=== PATIENT | female | born 1990 | race Caucasian/White ===

== ENCOUNTER 2018-03-08 21:46 | Emergency (ER) | payer OTHER ==
[2018-03-08] MEDS ORDERED: KETOROLAC 30 MG/ML 1 ML VIAL IVP STA (22:23)
[2018-03-08] MEDS ORDERED: SODIUM CHLORIDE 0.9% 500 ML IV STA (22:23)
[2018-03-08] MEDS ORDERED: ONDANSETRON 4 MG/2 ML VIAL IVP STA (22:24)
[2018-03-08 22:32] LABS: Basophils % (A) 0 %; Eosinophils % (A) 0 %; HCT 41.8 % (34.0-46.0); HGB 13.5 gm/dL (11.4-16.0); Lymphocytes # (A) 1.6 k/uL (1.0-4.8); Lymphocytes % (A) 12 %; MCH 29.5 pg (25.0-35.0); MCHC 32.2 g/dL (31.0-37.0); MCV 91.6 fL (80.0-100.0); Mean Platelet Volume 7.3; Monocytes # (A) 0.2 k/uL (0-1.0); Monocytes % (A) 2 %; Neutrophils # (A) 11.1 k/uL (1.3-7.7); Neutrophils % (A) 84 %; Platelet Count 309 k/uL (150-450); RBC 4.57 m/uL (3.80-5.40); RDW 14.7 % (11.5-15.5); WBC 13.1 k/uL (3.8-10.6)
[2018-03-08 22:48] LABS: ALT 28 U/L (9-52); AST 34 U/L (14-36); Albumin 4.7 g/dL (3.5-5.0); Alkaline Phosphatase 72 U/L (38-126); Amylase 62 U/L (30-110); Anion Gap 11 mmol/L; Blood Urea Nitrogen 19 mg/dL (7-17); Calcium 9.8 mg/dL (8.4-10.2); Carbon Dioxide 26 mmol/L (22-30); Chloride 101 mmol/L (98-107); Glucose 122 mg/dL (74-99); Lipase 32 U/L (23-300); Magnesium 1.9 mg/dL (1.6-2.3); Potassium 4.8 mmol/L (3.5-5.1); Sodium 138 mmol/L (137-145); Total Bilirubin 1.7 mg/dL (0.2-1.3); Total Protein 7.9 g/dL (6.3-8.2)
[2018-03-08 22:50] LABS: Creatine Kinase 319 U/L (30-135)
[2018-03-08 22:54] LABS: INR 1.1 (<1.2); Prothrombin Time 10.4 sec (9.0-12.0)
[2018-03-08 22:59] LABS: Partial Thromboplastin Time 20.9 sec (22.0-30.0)
[2018-03-08 23:03] LABS: Troponin I <0.012 ng/mL (0.000-0.034)
[2018-03-08 23:25] LABS: Appearance,Urine Clear (Clear); Bilirubin,Urine Negative (Negative); Blood,Urine Negative (Negative); Color,Urine Yellow; Glucose,Urine (UA) Negative (Negative); Ketones,Urine 1+ (Negative); Leukocyte Esterase,Urine Negative (Negative); Mucus,Urine Few /hpf; Nitrite,Urine Negative (Negative); PH, Urine 6.5 (5.0-8.0); Protein,Urine 1+ (Negative); RBC,Urine <1 /hpf (0-5); Squamous Epithelial Cell,Urine 5 /hpf (0-4); Urobilinogen,Urine <2.0 mg/dL (<2.0); WBC,Urine 2 /hpf (0-5)
--- NOTE | 2018-03-08 23:43 | XR ---
EXAMINATION TYPE: XR chest 2V DATE OF EXAM: 03/08/2018 COMPARISON: NONE HISTORY: Chest pain TECHNIQUE: Frontal and lateral views of the chest are obtained. FINDINGS: Heart and mediastinum are normal. Lungs are clear. Diaphragm is normal. Bony thorax appear s normal. There are chest leads. IMPRESSION: Normal chest
[2018-03-08 23:51] LABS: Amphetamine Screen,Urine Not Detected (NotDetected); Barbiturate Screen,Urine Not Detected (NotDetected); Benzodiazepines Screen,Urine Not Detected (NotDetected); Cocaine Screen,Urine Not Detected (NotDetected); Methadone Screen, Urine Not Detected (NotDetected); Opiate Screen,Urine Not Detected (NotDetected); Oxycodone Screen, Urine Not Detected (NotDetected); Phencyclidine Screen,Urine Not Detected (NotDetected); Tricyclic Antidepressant,Urine Not Detected (NotDetected); Urn Cannabinoid Scrn Not Detected (NotDetected)
[2018-03-09] MEDS ORDERED: ACETAMINOPHEN TAB 500 MG TAB PO STA (00:11)
--- NOTE | 2018-03-09 00:17 | ED ---
Chest Pain HPI - General Chief Complaint: Chest Pain Stated Complaint: abd pain Time Seen by Provider: 03/08/18 21:50 Source: patient, EMS Mode of arrival: EMS Limitations: no limitations - History of Present Illness Initial Comments: 28-year-old female patient currently at [place] for rehabilitation for methamphetamines presents to the emergency department today for complaints of chest pain, vomiting, and severe lower back pain. Patient states that she is being treated for methamphetamine abuse. Patient states that her symptoms started at 4:00 this morning. States that she has been vomiting all day. She denies any hematemesis. Denies any abdominal pain, constipation, or diarrhea. Denies any fevers or chills. Denies any hematuria, dysuria, urinary frequency, urinary urgency. Sates that she has felt feverish and chilled throughout the day. Patient denies any recent rash, shortness breath, back pain, numbness, tingling, dizziness, weakness, headache, visual changes, or any other complaints. - Related Data Home Medications Medication Instructions Recorded Confirmed Calcium/Magnesium 1000mg/500mg 1 tab PO TID PRN 03/08/18 03/08/18 Multivitamins, Thera [Multivitamin 1 tab PO DAILY 03/08/18 03/08/18 (formulary)] Ondansetron HCl [Zofran] 8 mg PO Q6H PRN 03/08/18 03/08/18 Ondansetron [Zofran] 4 mg IM Q6H PRN 03/08/18 03/08/18 Thiamine [Vitamin B-1] 100 mg PO DAILY 03/08/18 03/08/18 busPIRone HCl [Buspar] 10 mg PO TID PRN 03/08/18 03/08/18 cloNIDine HCL [Catapres] 0.1 mg PO Q4H PRN 03/08/18 03/08/18 Previous Rx's Medication Instructions Recorded Ibuprofen [Motrin] 600 mg PO Q8HR PRN #30 tab 03/09/18 Allergies Allergy/AdvReac Type Severity Reaction Status Date / Time amoxicillin Allergy Anaphylaxis Verified 03/08/18 22:01 Review of Systems ROS Statement: Those systems with pertinent positive or pertinent negative responses have been documented in the HPI. ROS Other: All systems not noted in ROS Statement are negative. EKG Findings - EKG Comments: EKG Findings:: EKG obtained at 2232 shows marked sinus bradycardia with fusion complexes. Ventricular rate is 48, [place] interval 112, QR quaker 86, QT 448, QTC 400. No evidence of ST elevation or depression. Past Medical History Past Medical History: Hypertension Additional Past Medical History / Comment(s): Drug abuse, liver diasease History of Any Multi-Drug Resistant Organisms: None Reported Past Surgical History: No Surgical Hx Reported Past Psychological History: No Psychological Hx Reported, Depression Smoking Status: Current every day smoker Past Alcohol Use History: None Reported Past Drug Use History: Cocaine, Heroin, Marijuana, Methamphetamine General Exam Limitations: no limitations Course Vital Signs 03/08/18 03/08/18 03/09/18 21:47 22:58 00:57 Temperature 99.5 F 98.2 F Pulse Rate 52 L 79 80 Respiratory 20 20 16 Rate Blood Pressure 164/86 164/78 150/94 O2 Sat by Pulse 99 97 100 Oximetry Chest Pain MDM - MDM 28-year-old female patient presented to the emergency department today for evaluation of chest pain, vomiting, and acute low back pain. Physical examination was relatively unremarkable. Abdomen soft and nontender. She did have tenderness over the lumbar spine and the paraspinal thoracic region. Labs reviewed and are relatively unremarkable. There were some EKG changes noted. A chest x-ray showed no acute cardiopulmonary process. CT of the thoracic and lumbar spine was obtained without contrast and showed no acute abnormalities. I did discuss findings and results with the patient. She is instructed to follow-up with cardiology for further evaluation of her abnormal EKG. Return parameters were discussed in detail patient verbalizes understanding and agreed with this plan. She'll be discharged back to [facility]. Disposition Clinical Impression: Chest pain, Acute low back pain Disposition: HOME SELF-CARE Condition: Good Instructions: Chest Pain (ED), Acute Low Back Pain (ED) Additional Instructions: Follow-up with your primary care physician for recheck in 1-2 days. Follow-up with cardiology for reevaluation and possible echo due to EKG changes. Return here immediately for any new, worsening, or concerning symptoms. Prescriptions: Ibuprofen [Motrin] 600 mg PO Q8HR PRN #30 tab PRN Reason: Pain Is patient prescribed a controlled substance at d/c from ED?: No Referrals: None,Stated [Primary Care Provider] - 1-2 days Omid Bran MD [STAFF PHYSICIAN] - 1-2 days Time of Disposition: 00:41
--- NOTE | 2018-03-09 00:19 | CT ---
EXAMINATION TYPE: CT thor lumbar spine wo con DATE OF EXAM: 03/08/2018 COMPARISON: None HISTORY: Back and chest pain, no injury CT DLP: 645.70 mGycm Automated exposure control for dose reduction was used. FINDINGS: The thoracic and lumbar vertebra have normal spacing and alignment. Posterior elements are intact. Th ere is no thoracic paraspinal mass. There is no evidence of compression fracture. Disc spaces are wel l-maintained. I see no focal bone destruction. Sacroiliac joints appear normal. There is no evidence of thoracic or lumbar spinal stenosis. IMPRESSION: NORMAL CT SCAN OF THE THORACIC SPINE. NORMAL CT SCAN OF THE LUMBAR SPINE.
[2018-03-09 00:58] VITALS: RESP 16
[2018-03-09 04:18] VITALS: BP 136/84; PULSE 52; TEMP 97.8
== END 2018-03-09 04:19 | disposition home or self-care (01) ==
LOC: EC 21:46
DX: R07.9 Chest pain, unspecified (principal); M54.5 Low back pain; R10.9 Unspecified abdominal pain; R11.10 Vomiting, unspecified; I10 Essential (primary) hypertension; F17.200 Nicotine dependence, unspecified, uncomplicated; Z79.899 Other long term (current) drug therapy; Z88.0 Allergy status to penicillin
CPT/HCPCS: 99285; 96374; 96375; 36415; 93005; 80053; 82150; 82550; 82553; 83690; 83735; 84484; 85025; 85610; 85730; 81001; 81025; 80306; 71046; 72128; 72131; J2405; J1885

== ENCOUNTER 2018-06-30 20:17 | Emergency (ER) | payer OTHER ==
[2018-06-30 20:29] VITALS: TEMP 97.9
[2018-06-30] MEDS ORDERED: IBUPROFEN 600 MG STARTER PACK 4 TAB BTL PO STA (22:05)
[2018-06-30] MEDS ORDERED: ACETAMINOPHEN TAB 500 MG TAB PO STA (22:05)
[2018-06-30] MEDS ORDERED: SULFAMETH-TMP DS STARTER PACK 2 TAB BTL PO STA (22:05)
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
[2018-06-30 23:12] VITALS: BP 108/77; PULSE 98; RESP 14
== END 2018-06-30 22:47 | disposition home or self-care (01) ==
LOC: EC 20:17
DX: L02.811 Cutaneous abscess of head [any part, except face] (principal); F17.200 Nicotine dependence, unspecified, uncomplicated; Z88.0 Allergy status to penicillin
CPT/HCPCS: 87070; 87077; 87186; 87205; 99284

== ENCOUNTER 2018-10-10 13:46 | Emergency (ER) | payer OTHER ==
[2018-10-10] MEDS ORDERED: SODIUM CHLORIDE 0.9% 1,000 ML IV STA (15:15)
[2018-10-10] MEDS ORDERED: ONDANSETRON 4 MG/2 ML VIAL IVP STA (15:15)
[2018-10-10] MEDS ORDERED: KETOROLAC 30 MG/ML 1 ML VIAL IVP STA (15:15)
--- NOTE | 2018-10-10 15:26 | ED ---
Abdominal Pain HPI - General Chief Complaint: Abdominal Pain Stated Complaint: Flank and back pain, vomiting Time Seen by Provider: 10/10/18 15:01 Source: patient, RN notes reviewed, old records reviewed Mode of arrival: ambulatory Limitations: no limitations - History of Present Illness Initial Comments: This Patient is a 20-year-old female who presents return today with onset of vomiting and left upper quadrant and right upper quadrant abdominal pain radiating towards her back. Patient reports symptoms started this morning. Patient reports that her urine is also had a foul odor. She denies any shortness of breath. Patient denies any recent fever, chills, shortness of breath, chest pain, back pain, , numbness or tingling, constipation or diarrhea, headaches or visual changes, or any other current symptoms - Related Data Home Medications Medication Instructions Recorded Confirmed Clindamycin [Cleocin] 150 mg PO QID 10/10/18 10/10/18 Previous Rx's Medication Instructions Recorded Nitrofurantoin Monohyd/M-Cryst 100 mg PO Q12HR #14 cap 10/10/18 [Macrobid] Allergies Allergy/AdvReac Type Severity Reaction Status Date / Time amoxicillin Allergy Anaphylaxis Verified 10/10/18 15:51 Penicillins Allergy Rash/Hives Verified 10/10/18 15:51 Review of Systems ROS Statement: Those systems with pertinent positive or pertinent negative responses have been documented in the HPI. ROS Other: All systems not noted in ROS Statement are negative. Past Medical History Past Medical History: Hypertension Additional Past Medical History / Comment(s): Drug abuse, liver disease History of Any Multi-Drug Resistant Organisms: None Reported Date of last positivie culture/infection: 06/30/18 MDRO Source:: HEAD Past Surgical History: No Surgical Hx Reported Past Psychological History: Anxiety, Depression Smoking Status: Current every day smoker Past Alcohol Use History: None Reported Past Drug Use History: Cocaine, Heroin, Marijuana, Methamphetamine General Exam - General Exam Comments Initial Comments: 28-year-old female. Alert and oriented 3. Patient appears in no acute distress. General: Well appearing, well nourished, in no distress. Oriented x 3, normal mood and affect . Ambulating without difficulty. Skin: Good turgor, no rash, unusual bruising or prominent lesions Hair: Normal texture and distribution. HEENT: Head: Normocephalic, atraumatic, no visible or palpable masses, depressions, or scaring. Eyes: Visual acuity intact, conjunctiva clear, sclera non-icteric, EOM intact, PERRL. Ears: EACs clear, TMs translucent & cone of light visualized. hearing intact. Nose: No external lesions, mucosa non-inflamed, septum and turbinates normal Mouth: Mucous membranes moist, no mucosal lesions. Teeth/Gums: No obvious caries or periodontal disease. No gingival inflammation or significant resorption. Pharynx: Mucosa non-inflamed, no tonsillar hypertrophy or exudate Neck: Supple, without lesions, bruits, or adenopathy, thyroid non-enlarged and non-tender Heart: No cardiomegaly or thrills; regular rate and rhythm, no murmur or gallop Lungs: Clear to auscultation and percussion Abdomen: Some right CVA tenderness. Right upper quadrant tenderness on abdominal exam. Bowel sounds normal. Extremities: No amputations or deformities, cyanosis, edema or varicosities, peripheral pulses intact Musculoskeletal: Normal gait and station. No misalignment, asymmetry, crepitation, defects, tenderness, masses, effusions, decreased range of motion, instability, atrophy or abnormal strength or tone in the head, neck, spine, ribs, pelvis or extremities. Neurologic: CN 2-12 normal. Sensation to pain, touch, and proprioception normal. DTRs normal in upper and lower extremities. No pathologic reflexes. Psychiatric: Oriented X3, intact recent and remote memory, judgment and insight, normal mood and affect. Limitations: no limitations Course Vital Signs 10/10/18 10/10/18 14:14 16:06 Temperature 97.7 F 97.6 F Pulse Rate 105 H 83 Respiratory 18 16 Rate Blood Pressure 108/71 107/75 O2 Sat by Pulse 99 98 Oximetry - Reevaluation(s) Reevaluation #1: 10/10/18 17:42 Patient was reevaluated and sleeping comfortably in bed. Medical Decision Making - Medical Decision Making Patient's 20-year-old female presents for shortness of 1 day of nausea and vomiting. Negative right side abdominal pain radiates towards her back. Ur inalysis does show I amount of bacteria. She does complain of dysuria and foul urine. Lab work was otherwise unremarkable. Vital signs are stable. No fever. White blood cell count was within normal limits. Liver enzymes are normal. At this time Patient was reevaluated multiple times and resting comfortably bed. Each time I evaluate the Patient she continues to complain of pain. Patient will be given a dose of IV Toradol and 1 dose of muscle rocks of Flexeril. Ultrasound of the gallbladder and kidney was completed. She developed positive sign F Ding sign but no leukocytosis no fever. Discussed possibility biliary colic. Discussed following up with surgeon and monitoring for fevers. We'll discharge the Patient this time with antibiotics for urinary tract infection and close follow-up with PCP. [facility] - Lab Data Result diagrams: 10/10/18 15:20 10/10/18 15:20 Lab Results 10/10/18 10/10/18 10/10/18 Range/Units 15:20 15:20 16:00 WBC 9.1 (3.8-10.6) k/uL RBC 4.60 (3.80-5.40) m/uL Hgb 13.6 (11.4-16.0) gm/dL Hct 42.6 (34.0-46.0) % MCV 92.6 (80.0-100.0) fL MCH 29.5 (25.0-35.0) pg MCHC 31.9 (31.0-37.0) g/dL RDW 14.2 (11.5-15.5) % Plt Count 336 (150-450) k/uL Neutrophils % 67 % Lymphocytes % 25 % Monocytes % 4 % Eosinophils % 1 % Basophils % 1 % Neutrophils # 6.1 (1.3-7.7) k/uL Lymphocytes # 2.2 (1.0-4.8) k/uL Monocytes # 0.4 (0-1.0) k/uL Eosinophils # 0.1 (0-0.7) k/uL Basophils # 0.1 (0-0.2) k/uL Sodium 143 (137-145) mmol/L Potassium 4.5 (3.5-5.1) mmol/L Chloride 105 (98-107) mmol/L Carbon Dioxide 29 (22-30) mmol/L Anion Gap 9 mmol/L BUN 22 H (7-17) mg/dL Creatinine 0.77 (0.52-1.04) mg/dL Est GFR (CKD-EPI)AfAm >90 (>60 ml/min/1.73 sqM) Est GFR (CKD-EPI)NonAf >90 (>60 ml/min/1.73 sqM) Glucose 90 (74-99) mg/dL Calcium 9.5 (8.4-10.2) mg/dL Total Bilirubin 0.6 (0.2-1.3) mg/dL AST 24 (14-36) U/L ALT 35 (9-52) U/L Alkaline Phosphatase 86 (38-126) U/L Total Protein 7.6 (6.3-8.2) g/dL Albumin 4.3 (3.5-5.0) g/dL Amylase 93 (30-110) U/L Lipase 64 (23-300) U/L Urine Color Urine Appearance (Clear) Urine pH (5.0-8.0) Ur Specific Diamond (1.001-1.035) Urine Protein (Negative) Urine Glucose (UA) (Negative) Urine Ketones (Negative) Urine Blood (Negative) Urine Nitrite (Negative) Urine Bilirubin (Negative) Urine Urobilinogen (<2.0) mg/dL Ur Leukocyte Esterase (Negative) Urine RBC (0-5) /hpf Urine Bacteria (None) /hpf Urine Mucus (None) /hpf Urine Yeast (Budding) (None) /hpf Urine HCG, Qual Not Detected (Not Detectd) 10/10/18 Range/Units 16:00 WBC (3.8-10.6) k/uL RBC (3.80-5.40) m/uL Hgb (11.4-16.0) gm/dL Hct (34.0-46.0) % MCV (80.0-100.0) fL MCH (25.0-35.0) pg MCHC (31.0-37.0) g/dL RDW (11.5-15.5) % Plt Count (150-450) k/uL Neutrophils % % Lymphocytes % % Monocytes % % Eosinophils % % Basophils % % Neutrophils # (1.3-7.7) k/uL Lymphocytes # (1.0-4.8) k/uL Monocytes # (0-1.0) k/uL Eosinophils # (0-0.7) k/uL Basophils # (0-0.2) k/uL Sodium (137-145) mmol/L Potassium (3.5-5.1) mmol/L Chloride (98-107) mmol/L Carbon Dioxide (22-30) mmol/L Anion Gap mmol/L BUN (7-17) mg/dL Creatinine (0.52-1.04) mg/dL Est GFR (CKD-EPI)AfAm (>60 ml/min/1.73 sqM) Est GFR (CKD-EPI)NonAf (>60 ml/min/1.73 sqM) Glucose (74-99) mg/dL Calcium (8.4-10.2) mg/dL Total Bilirubin (0.2-1.3) mg/dL AST (14-36) U/L ALT (9-52) U/L Alkaline Phosphatase (38-126) U/L Total Protein (6.3-8.2) g/dL Albumin (3.5-5.0) g/dL Amylase (30-110) U/L Lipase (23-300) U/L Urine Color Yellow Urine Appearance Cloudy H (Clear) Urine pH 8.0 (5.0-8.0) Ur Specific Diamond 1.015 (1.001-1.035) Urine Protein Negative (Negative) Urine Glucose (UA) Negative (Negative) Urine Ketones Negative (Negative) Urine Blood Negative (Negative) Urine Nitrite Negative (Negative) Urine Bilirubin Negative (Negative) Urine Urobilinogen <2.0 (<2.0) mg/dL Ur Leukocyte Esterase Negative (Negative) Urine RBC 2 (0-5) /hpf Urine Bacteria Rare H (None) /hpf Urine Mucus Rare H (None) /hpf Urine Yeast (Budding) Many H (None) /hpf Urine HCG, Qual (Not Detectd) - Radiology Data Radiology results: report reviewed Positive Ding sign and no other sonographic findings to diagnose cholecystitis. Doubt cholecystitis at that time less high clinical suspicion with leukocytosis and neutrophilia. If indicated further characterization to be right with abdominal MRI or CT. Disposition Clinical Impression: UTI (urinary tract infection), Muscle strain of upper back, Vomiting, Biliary colic Disposition: HOME SELF-CARE Condition: Good Instructions (If sedation given, give patient instructions): Urinary Tract Infection in Women (DC) Additional Instructions: Follow-up with primary care physician. Patient should return to the emergency department if any alarming signs or symptoms occur. Prescriptions: Nitrofurantoin Monohyd/M-Cryst [Macrobid] 100 mg PO Q12HR #14 cap Is patient prescribed a controlled substance at d/c from ED?: No Referrals: None,Stated [Primary Care Provider] - 1-2 days Alma Delia Harmon MD [STAFF PHYSICIAN] - 1-2 days Time of Disposition: 18:38
[2018-10-10 15:51] LABS: Basophils # (A) 0.1 k/uL (0-0.2); Basophils % (A) 1 %; Eosinophils # (A) 0.1 k/uL (0-0.7); Eosinophils % (A) 1 %; HCT 42.6 % (34.0-46.0); HGB 13.6 gm/dL (11.4-16.0); Lymphocytes # (A) 2.2 k/uL (1.0-4.8); Lymphocytes % (A) 25 %; MCH 29.5 pg (25.0-35.0); MCHC 31.9 g/dL (31.0-37.0); MCV 92.6 fL (80.0-100.0); Mean Platelet Volume 6.8; Monocytes # (A) 0.4 k/uL (0-1.0); Monocytes % (A) 4 %; Neutrophils # (A) 6.1 k/uL (1.3-7.7); Neutrophils % (A) 67 %; Platelet Count 336 k/uL (150-450); RDW 14.2 % (11.5-15.5); WBC 9.1 k/uL (3.8-10.6)
[2018-10-10 16:02] LABS: ALT 35 U/L (9-52); AST 24 U/L (14-36); Albumin 4.3 g/dL (3.5-5.0); Alkaline Phosphatase 86 U/L (38-126); Amylase 93 U/L (30-110); Anion Gap 9 mmol/L; Blood Urea Nitrogen 22 mg/dL (7-17); Calcium 9.5 mg/dL (8.4-10.2); Carbon Dioxide 29 mmol/L (22-30); Chloride 105 mmol/L (98-107); Glucose 90 mg/dL (74-99); Lipase 64 U/L (23-300); Potassium 4.5 mmol/L (3.5-5.1); Sodium 143 mmol/L (137-145); Total Bilirubin 0.6 mg/dL (0.2-1.3); Total Protein 7.6 g/dL (6.3-8.2)
[2018-10-10 16:09] VITALS: RESP 16; TEMP 97.6
[2018-10-10 16:20] LABS: Appearance,Urine Cloudy (Clear); Bacteria,Urine Rare /hpf; Bilirubin,Urine Negative (Negative); Blood,Urine Negative (Negative); Budding Yeast,Urine Many /hpf; Color,Urine Yellow; Glucose,Urine (UA) Negative (Negative); Ketones,Urine Negative (Negative); Leukocyte Esterase,Urine Negative (Negative); Mucus,Urine Rare /hpf; Nitrite,Urine Negative (Negative); Protein,Urine Negative (Negative); RBC,Urine 2 /hpf (0-5); Specific Gravity,Urine 1.015 (1.001-1.035); Urobilinogen,Urine <2.0 mg/dL (<2.0)
--- NOTE | 2018-10-10 17:57 | US ---
EXAMINATION TYPE: US gallbladder DATE OF EXAM: 10/10/2018 COMPARISON: NONE CLINICAL HISTORY: Pain. EC patient with severe RUQ pain today; nausea and vomiting; patient stated la st ate at 11:00AM. EXAM MEASUREMENTS: Liver Length: 19.6 cm Gallbladder Wall: 0.2 cm CBD: 0.3 cm Right Kidney: 10.4 x 5.6 x 4.2 cm Pancreas: wnl Liver: Milagros's lobe inferior right lobe which may be reason for enlarged size Gallbladder: The gallbladder is markedly contracted. 6 hours NPO status. Evidence for sonographic Ding's sign: yes, technologist reports severe tenderness. CBD: wnl Right Kidney: wnl, IMPRESSION: Positive for sonographic Ding's sign, but no other sonographic findings which would diagnose cholec ystitis. Therefore, doubt cholecystitis at this time unless there is high clinical suspicion with dorian kocytosis and neutrophilia. If clinically indicated, further characterization can be provided with ab dominal MRI or CT.
[2018-10-10] MEDS ORDERED: CYCLOBENZAPRINE 10MG STARTER 3 TAB BTL PO STA (18:38)
[2018-10-10 18:55] VITALS: BP 107/54; PULSE 67
== END 2018-10-10 18:55 | disposition home or self-care (01) ==
LOC: EC 13:46
DX: N39.0 Urinary tract infection, site not specified (principal); K80.50 Calculus of bile duct without cholangitis or cholecystitis without obstruction; S29.012A Strain of muscle and tendon of back wall of thorax, initial encounter; F17.200 Nicotine dependence, unspecified, uncomplicated; Z88.0 Allergy status to penicillin
CPT/HCPCS: 99284; 96374; 96375; 36415; 80053; 82150; 83690; 85025; 81001; 81025; 87086; 76705; 96361; J2405; J1885